=== PATIENT | male | born 1965 | race Caucasian/White ===

== ENCOUNTER 2020-07-10 09:34 | Emergency (ER) | payer BC, SELFPAY ==
[2020-07-10 09:44] VITALS: BP 146/88; PULSE 63; RESP 20; TEMP 37.2; O2SAT 99
--- NOTE | 2020-07-10 09:47 | ED.DENTAL ---
HPI - Dental/Oral General Chief complaint: Dental/Oral Stated complaint: Tooth Ache Time Seen by Provider: 07/10/20 09:48 Source: patient and RN notes reviewed Mode of arrival: ambulatory Limitations: no limitations History of Present Illness HPI Narrative: 55 year old male who presents to [facility] with complaints of dental pain to his back lower molar # 30 since early Friday morning. Patient states that he was eating some Cashews on Friday and he states he thinks he may of broke some of the tooth off. Patient has missing back molars on the right lower side # 31 and #32 and has not seen a dentist in a while he states. Patient has no swelling noted to his jaw, no complaints of difficulty with swallowing or breathing, minimal redness of gum around #30 tooth with posterior portion of tooth area gone. Patient states that he has been taking Ibuprofen and using water and peroxide rinses with no improvement in his discomfort. MD Complaint: tooth pain Location: Tooth # (30) Onset (ago): day(s) (3) Duration: constant Severity: severe Severity scale (1-10): 8 Relieving factors: NSAIDs Exacerbating factors: chewing Context: history of dental caries Treatment prior to arrival: other (Ibuprofen) Related Data Allergies Allergy/AdvReac Type Severity Reaction Status Date / Time No Known Allergies Allergy Verified 07/10/20 10:00 Review of Systems Review of Systems: Narrative: CONSTITUTIONAL: Denies fever, chills, or sweats. EYES: Denies visual changes, redness, or discharge. ENT: Denies rhinorrhea, congestion, sore throat, or otalgia, positive for dental pain to right lower gum CARDIOVASCULAR: Denies chest pain, palpitations, or edema. RESPIRATORY: Denies cough or dyspnea. GASTROINTESTINAL: Denies abdominal pain, nausea, vomiting, or diarrhea. GENITOURINARY: Denies dysuria or hematuria. SKIN: Denies rash or itching. MUSCULOSKELETAL: Denies back pain, joint pain, or myalgia. NEUROLOGIC: Denies headache, numbness, or weakness. PSYCHIATRIC: Denies anxiety or depression. All systems reviewed & are unremarkable except as noted in HPI and below PMFSH Past Medical History Medical History (Updated 07/10/20 @ 10:37 by Desirae Moreau NP) Dental caries Surgical History Surgical History (Updated 07/10/20 @ 10:37 by Desirae Moreau NP) No history of previous surgery Social History Social History (Updated 07/10/20 @ 09:53 by Desirae Moreau NP) Smoking status: Current some day smoker Tobacco type: cigarettes Alcohol intake: current Alcohol use details: weekends Living arrangements: with family Gender identity (if verbalized by the patient): Male Comments At time of signature, agree with nursing past medical, surgical, social history. There is no relevant family history pertinent to the presenting complaint Exam Narrative: Exam Narrative: GENERAL: Well-appearing, well-nourished, and in no acute distress. HEAD: Normocephalic, atraumatic. EYES: PERRLA and EOMI. ENT: Nares clear, no rhinorrhea or epistaxis. Mucous membranes moist.TM's normal with good light reflex, no tonsil enlargement or any exudates noted to throat, #30 tooth has posterior portion of tooth missing with dental pain to tooth reported, minimal redness of gum around #30 tooth with no jaw swelling noted. No Deo angina noted. NECK: Supple.No lymphadenopathy CHEST: Clear to auscultation. No respiratory distress.SAO2 99% on room air. HEART: Regular rate and rhythm. No murmur heard. Normal peripheral pulses. ABDOMEN: Soft, nontender, nondistended, normal active bowel sounds. EXTREMITIES: Normal range of motion. No edema. SKIN: Warm, dry, no rash. NEURO: No focal deficits. Alert and oriented x3. Course Vital Signs Vital signs: Vital Signs Temperature 37.2 C 07/10/20 09:44 Pulse Rate 63 07/10/20 09:44 Respiratory Rate 20 07/10/20 09:44 Blood Pressure 146/88 H 07/10/20 09:44 Pulse Oximetry 99 07/10/20 09:44 Temperature 37.2
== END 2020-07-10 10:13 | disposition home or self-care (01) ==
PROVIDERS: Emergency Provider Registered Nurse
DX: K08.89 Other specified disorders of teeth and supporting structures (principal); K02.9 Dental caries, unspecified; F17.210 Nicotine dependence, cigarettes, uncomplicated
CPT/HCPCS: 99213; G0463